=== PATIENT | female | born 1985 | race Caucasian/White ===

== ENCOUNTER 2018-09-29 06:26 | Emergency (ER) | payer OTHER ==
[~2018-09-29] VITALS: Ht 175.3 cm; Wt 81.2 kg
[~2018-09-29 06:26] MED LIST: BACTRIM DS TAB1 EACH PO; CIPRO500 M1 PO; CITRATE OF MAG296 ML PO; CLONAZEPAM 1 MG1 M1; COLACE100 MG PO; DULCOLAX5 MG; FLAGYL500 MG PO; FLOMAX0.4 MG PO; LAMICTAL100 MG PO; LOXAPINE25 MG PO; MACROBID 100 M100 M1 PO; MIRALAX17 G1 PO; MIRALAX17 GM; MIRALAX17 GM PO; NORCO 5-325 TA1 EACH PO; ONDANSETRON HCL4 M2 PO; OXYCONTIN10 M1 PO; PHENERGAN 25 MG25 M1 PO; PRILOSEC20 MG PO; PROZAC20 MG PO; TRAZODONE HCL100 MG PO; ULTRAM 50MG TAB50 MG PO; XANAX1 MG PO; ZOFRAN4 MG PO
[2018-09-29] MEDS ORDERED: XANAX 0.5 MG0.5 MG PO (06:56)
[2018-09-29] MEDS ORDERED: CARBAMAZEPINE200 M5 PO (06:57)
[2018-09-29] MEDS ORDERED: ADDERALL 20 MG20 M1 PO (06:58)
[2018-09-29 07:05] LABS: URINE BILIRUBIN NEGATIVE (Negative); URINE BLOOD 3+ (Negative); URINE CLARITY CLEAR; URINE COLOR YELLOW; URINE GLUCOSE-RANDOM* NEGATIVE (Negative); URINE KETONES NEGATIVE (Negative); URINE LEUKOCYTES-REFLEX TRACE (Negative); URINE NITRITE-REFLEX NEGATIVE (Negative); URINE PROTEIN (DIPSTICK) NEGATIVE (Negative); URINE SPECIFIC GRAVITY 1.025 (1.005-1.035)
[2018-09-29 07:15] LABS: CASTS None Seen /LPF (None Seen); MUCUS >6 Heavy strn/LPF (None Seen); SQUAMOUS >10 Many /LPF (0-3)
[2018-09-29 07:17] LABS: CRYSTALS None Seen /LPF (None Seen); URINE RBC >20 Many /HPF (0-2); URINE WBC-REFLEX 6-15 Few /HPF (0-5)
[2018-09-29 08:11] LABS: HEMATOCRIT 33.4 % (37.0-47.0); HEMOGLOBIN 10.7 gm/dL (12.0-15.0); MCH 25.9 pg (26.0-34.0); MCHC 31.9 g/dL (28.0-37.0); RBC 4.13 mil/uL (4.20-5.00); RDW 18.5 % (10.5-14.5); WBC 4.2 thou/uL (4.0-11.0)
[2018-09-29 08:16] LABS: CALCIUM 8.4 mg/dL (8.5-10.1); CREATININE 0.6 mg/dL (0.6-1.0); POTASSIUM 3.7 mmol/L (3.5-5.1)
[2018-09-29] MEDS ORDERED: KEFLEX500 M1 PO (08:45)
[2018-09-29 09:03] VITALS: BP 133/101
== END 2018-09-29 09:03 | disposition home or self-care (01) ==
LOC: ER 06:26
PROVIDERS: Emergency Medicine
DX: N39.0 Urinary tract infection, site not specified (principal); Z87.442 Personal history of urinary calculi; Z90.49 Acquired absence of other specified parts of digestive tract; Z88.0 Allergy status to penicillin; Z91.018 Allergy to other foods